=== PATIENT | male | born 1940 | race Caucasian/White ===

== ENCOUNTER 2018-09-25 17:50 | Emergency (ER) | payer MEDICARE ==
[2018-09-25] MEDS ORDERED: Sodium Chloride 0.9% 1000 ML 1,000 ML IV STA ×2 (18:37→21:05)
--- NOTE | 2018-09-25 18:45 | ERPHSYRPT ---
- History of Present Illness Source: patient Exam Limitations: intoxication Patient Subjective Stated Complaint: Flank pain Triage Nursing Assessment: Patient ambulated back to ED and transferred self to bed. Patient A+O X 3. Patient complains of suzi flank pain constant aching 5/10. Patient states the right flank pain is more intense. Patient also complains of lower abdominal pain. Patient states his urine is bloody and he is having trouble urinating. Patient states he passes a kidney stone prior to coming in. Abdomen soft and round with BS X 4. Timing/Duration: today Activites at Onset: other (urinating) Quality: burning, fullness, sharpness Onset Location: RLQ, right flank, left flank Pain Radiation: none Severity of Pain-Max: mild Severity of Pain-Current: mild Modifying Factors: Improves With: analgesics Associated Symptoms: abdominal pain, dysuria, other (hematuria) Prior abdominal problems: none Hx Influenza Vaccination/Date Given: Yes Hx Pneumococcal Vaccination/Date Given: Yes Immunizations Up to Date: Yes <BRANDON MCNAMARA - Last Filed: 09/25/18 18:39> <CHRIS GALAVIZ - Last Filed: 09/25/18 21:28> - History of Present Illness Physician History: Pt is a 78 y/o male that presented to the ER stating, he passed a kidney stone, and had hematuria. Pt states, he still has pain in b/l CVAs, more on R, and RLQ. Pt denies other complains, and has no F/C/S. No SOB or cough. No chest pain or palpitations. Pt looks intoxicated, and it is hard to get clear history from pt. (BRANDON MCNAMARA) Allergies/Adverse Reactions: No Known Drug Allergies Allergy (Unverified 09/25/18 18:22) - Past Medical History Pertinent Past Medical History: Yes Neurological History: No Pertinent History ENT History: No Pertinent History Cardiac History: Hypertension Respiratory History: No Pertinent History Endocrine Medical History: No Pertinent History Musculoskeletal History: No Pertinent History GI Medical History: No Pertinent History History: No Pertinent History Psycho-Social History: No Pertinent History Male Reproductive Disorders: No Pertinent History - Past Surgical History Past Surgical History: Yes Neuro Surgical History: No Pertinent History Cardiac: No Pertinent History Respiratory: No Pertinent History Gastrointestinal: No Pertinent History Genitourinary: No Pertinent History Musculoskeletal: Orthopedic Surgery Male Surgical History: No Pertinent History Other Surgical History: Right leg - Social History Smoking Status: Current every day smoker How long have you smoked: years Exposure to second hand smoke: Yes Drug Use: marijuana, methamphetamines Patient Lives Alone: No <BRANDON MCNAMARA - Last Filed: 09/25/18 18:39> - Review of Systems Constitutional: No Fever, No Chills Eyes: No Symptoms Ears, Nose, & Throat: No Symptoms Abdominal/Gastrointestinal: Abdominal Pain Genitourinary Symptoms: Dysuria, Hematuria, Flank Pain Musculoskeletal: No Back Pain, No Neck Pain Neurological: No Dizziness, No Focal Weakness, No Sensory Changes <BRANDON MCNAMARA - Last Filed: 09/25/18 18:39> - Physical Exam SpO2: 97 <BRANDON MCNAMARA - Last Filed: 09/25/18 18:39> - Physical Exam General Appearance: alert, other (well-developed white male alert, smacking lips frequent random movements suspicious for tardive dyskinesia) Eye Exam: PERRL/EOMI, other (fundi unremarkable) Ears, Nose, Throat Exam: pharynx normal, moist mucous membranes Neck Exam: normal inspection, supple Respiratory Exam: normal breath sounds, lungs clear Cardiovascular Exam: regular rate/rhythm, capillary refill <2 sec, No edema Gastrointestinal/Abdomen Exam: soft, normal bowel sounds, No tenderness Back Exam: normal inspection, No CVA tenderness Extremity Exam: normal inspection, normal range of motion, No pedal edema Neurologic Exam: alert, oriented x 3, tissue technician II-XII nml as tested, other (patient with frequent random movements, smacking his lips) Skin Exam: normal color, warm, dry, No rash SpO2 Interpretation: normal (97%) <CHRIS GALAVIZ - Last Filed: 09/25/18 21:28> - Nursing Vital Signs Nursing Vital Signs: Initial Vital Signs Temperature 98.7 F 09/25/18 18:24 Pulse Rate 82 09/25/18 18:24 Respiratory Rate 18 09/25/18 18:24 Blood Pressure 122/87 09/25/18 18:24 O2 Sat by Pulse Oximetry 97 09/25/18 18:24 Pain Scale Pain Intensity 6 - Course Nursing assessment & vital signs reviewed: Yes <BRANDON MCNAMARA - Last Filed: 09/25/18 18:39> - Course EKG Interpreted by Me: RATE (78 bpm), Sinus Rhythm, NORMAL AXIS, Other (EKG: Sinus rhythm, 70 beats per minute, Q waves in lead 3 and aVF, normal axis, no acute ST or T wave changes noted) - CT Exams Abdomen/Pelvis CT Interpretation: Discussed w/radiologist (CT abdomen and pelvis: No comparisons. Nonobstructing left renal punctate calculus. Distended urinary bladder with mild circumferential wall thickening. Rule out cystitis. Normal appendix. Multiple small gallstones. Moderate size hiatal hernia. Mild diffuse fecal stasis.) <CHRIS GALAVIZ - Last Filed: 09/25/18 21:28> Ordered Tests: Active Orders 24 hr Category Date Time Status EKG-ER Only STAT Care 09/25/18 19:50 Active IV Insertion STAT Care 09/25/18 18:37 Active ABDOMEN AND PELVIS W/0 CONTRAS [CT] Stat Exams 09/25/18 18:38 Taken Alcohol [ETHYL ALCOHOL] Stat Lab 09/25/18 18:50 Completed CBC W DIFF Stat Lab 09/25/18 18:50 Completed CMP Stat Lab 09/25/18 18:50 Completed Lactic Acid Stat Lab 09/25/18 18:37 Completed UA W/RFX UR CULTURE Stat Lab 09/25/18 20:34 Completed Urine Triage Profile Stat Lab 09/25/18 20:34 Completed Medication Summary Generic Name Dose Route Start Last Admin Trade Name Freq PRN Reason Stop Dose Admin Sodium Chloride 1,000 mls @ 999 mls/hr 09/25/18 21:05 09/25/18 21:07 Sodium Chloride 0.9% 1000 Ml IV 09/25/18 22:05 999 mls/hr .Q1H1M STA Administration Discontinued Medications Generic Name Dose Route Start Last Admin Trade Name Freq PRN Reason Stop Dose Admin Sodium Chloride 1,000 mls @ 999 mls/hr 09/25/18 18:37 09/25/18 19:54 Sodium Chloride 0.9% 1000 Ml IV 09/25/18 19:37 Infused .Q1H1M STA Infusion Sodium Chloride Confirm 09/25/18 18:51 Sodium Chloride 0.9% 1000 Ml Administered 09/25/18 18:52 Dose 1,000 mls @ ud .ROUTE .STK-MED ONE Sodium Chloride Confirm 09/25/18 21:06 Sodium Chloride 0.9% 1000 Ml Administered 09/25/18 21:07 Dose 1,000 mls @ ud .ROUTE .STK-MED ONE Lab/Rad Data: Laboratory Result Diagrams 09/25/18 18:50 09/25/18 18:50 Laboratory Results 09/25/18 09/25/18 09/25/18 Range/Units 20:34 20:34 18:50 WBC (4.0-10.5) K/mm3 RBC (4.1-5.6) M/mm3 Hgb (12.5-18.0) gm/dl Hct (42-50) % MCV (78-100) fl MCH (26-32) pg MCHC (32-36) g/dl RDW (11.5-14.0) % Plt Count (150-450) K/mm3 MPV (6-9.5) fl Gran % (36.0-66.0) % Eos # (Auto) (0-0.5) Absolute Lymphs (auto) (1.0-4.6) Absolute Monos (auto) (0.0-1.3) Lymphocytes % (24.0-44.0) % Monocytes % (0.0-12.0) % Eosinophils % (0.00-5.0) % Basophils % (0.0-0.4) % Absolute Granulocytes (1.4-6.9) Basophils # (0-0.4) Sodium (137-145) mmol/L Potassium (3.5-5.1) mmol/L Chloride (98-107) mmol/L Carbon Dioxide (22-30) mmol/L Anion Gap (5-15) MEQ/L BUN (9-20) mg/dL Creatinine (0.66-1.25) mg/dL Estimated GFR ML/MIN Glucose (74-106) mg/dL Lactic Acid (0.4-2.0) Calcium (8.4-10.2) mg/dL Total Bilirubin (0.2-1.3) mg/dL AST (17-59) U/L ALT (0-50) U/L Alkaline Phosphatase (38-126) U/L Serum Total Protein (6.3-8.2) g/dL Albumin (3.5-5.0) g/dL Urine Color YELLOW (YELLOW) Urine Appearance CLEAR (CLEAR) Urine pH 5.0 (5-6) Ur Specific Jackson 1.018 (1.005-1.025) Urine Protein NEGATIVE (Negative) Urine Ketones NEGATIVE (NEGATIVE) Urine Blood NEGATIVE (0-5) Jerry/ul Urine Nitrite NEGATIVE (NEGATIVE) Urine Bilirubin NEGATIVE (NEGATIVE) Urine Urobilinogen NEGATIVE (0-1) mg/dL Ur Leukocyte Esterase NEGATIVE (NEGATIVE) Urine WBC (Auto) 0-2 (0-5) /HPF Urine RBC (Auto) 0-2 (0-2) /HPF U Hyaline Cast (Auto) 0-2 (0-2) /LPF U Epithel Cells (Auto) NONE (FEW) /HPF Urine Bacteria (Auto) NONE (NEGATIVE) /HPF Urine Mucus (Auto) SLIGHT (NEGATIVE) /HPF Urine Culture Reflexed NO (NO) Urine Glucose NEGATIVE (NEGATIVE) mg/dL Urine Opiates Level NEGATIVE (NEGATIVE) Ur Methadone NEGATIVE (NEGATIVE) Urine Barbiturates NEGATIVE (NEGATIVE) Ur Phencyclidine (PCP) NEGATIVE (NEGATIVE) Urine Amphetamine POSITIVE (NEGATIVE) U Benzodiazepine Level NEGATIVE (NEGATIVE) Urine Cocaine NEGATIVE (NEGATIVE) Urine Marijuana (THC) NEGATIVE (NEGATIVE) Ethyl Alcohol < 10 (0-10) mg/dL 09/25/18 09/25/18 09/25/18 Range/Units 18:50 18:50 18:37 WBC 11.1 H (4.0-10.5) K/mm3 RBC 3.51 L (4.1-5.6) M/mm3 Hgb 12.5 (12.5-18.0) gm/dl Hct 36.9 L (42-50) % MCV 105.1 H (78-100) fl MCH 35.6 H (26-32) pg MCHC 33.9 (32-36) g/dl RDW 13.6 (11.5-14.0) % Plt Count 189 (150-450) K/mm3 MPV 9.1 (6-9.5) fl Gran % 67.2 H (36.0-66.0) % Eos # (Auto) 0.22 (0-0.5) Absolute Lymphs (auto) 2.17 (1.0-4.6) Absolute Monos (auto) 1.21 (0.0-1.3) Lymphocytes % 19.5 L (24.0-44.0) % Monocytes % 10.9 (0.0-12.0) % Eosinophils % 2.0 (0.00-5.0) % Basophils % 0.4 (0.0-0.4) % Absolute Granulocytes 7.49 H (1.4-6.9) Basophils # 0.05 (0-0.4) Sodium 139 (137-145) mmol/L Potassium 4.7 (3.5-5.1) mmol/L Chloride 106 (98-107) mmol/L Carbon Dioxide 26 (22-30) mmol/L Anion Gap 11.3 (5-15) MEQ/L BUN 30 H (9-20) mg/dL Creatinine 1.37 H (0.66-1.25) mg/dL Estimated GFR 53.4 ML/MIN Glucose 83 (74-106) mg/dL Lactic Acid 0.9 (0.4-2.0) Calcium 9.5 (8.4-10.2) mg/dL Total Bilirubin 1.10 (0.2-1.3) mg/dL AST 46 (17-59) U/L ALT 30 (0-50) U/L Alkaline Phosphatase 90 (38-126) U/L Serum Total Protein 7.2 (6.3-8.2) g/dL Albumin 4.0 (3.5-5.0) g/dL Urine Color (YELLOW) Urine Appearance (CLEAR) Urine pH (5-6) Ur Specific Jackson (1.005-1.025) Urine Protein (Negative) Urine Ketones (NEGATIVE) Urine Blood (0-5) Jerry/ul Urine Nitrite (NEGATIVE) Urine Bilirubin (NEGATIVE) Urine Urobilinogen (0-1) mg/dL Ur Leukocyte Esterase (NEGATIVE) Urine WBC (Auto) (0-5) /HPF Urine RBC (Auto) (0-2) /HPF U Hyaline Cast (Auto) (0-2) /LPF U Epithel Cells (Auto) (FEW) /HPF Urine Bacteria (Auto) (NEGATIVE) /HPF Urine Mucus (Auto) (NEGATIVE) /HPF Urine Culture Reflexed (NO) Urine Glucose (NEGATIVE) mg/dL Urine Opiates Level (NEGATIVE) Ur Methadone (NEGATIVE) Urine Barbiturates (NEGATIVE) Ur Phencyclidine (PCP) (NEGATIVE) Urine Amphetamine (NEGATIVE) U Benzodiazepine Level (NEGATIVE) Urine Cocaine (NEGATIVE) Urine Marijuana (THC) (NEGATIVE) Ethyl Alcohol (0-10) mg/dL <BRANDON MCNAMARA - Last Filed: 09/25/18 18:39> - Progress Progress: improved <CHRIS GALAVIZ - Last Filed: 09/25/18 21:28> - Progress Progress Note: 09/25/18 18:44 Pt was seen and examined. Labs were ordered, and CT of abdomen and pelvis with no contrast was ordered as well. At this point, I will not give any opioids to the PT as UDS, and ETOH level is pending. IVF were ordered. Pt was signed out to Dr Galaviz. (BRANDON MCNAMARA) 09/25/18 19:46 78-year-old white male initially seen by Dr. Mcnamara Patient with complaint of bilateral flank pain he states he had blood in his urine feels like he passed a stone today.\ On physical examination patient is alert he has smacking of his lips frequently random movements appears to have tardive dyskinesia. He denies any previous antipsychotic medication. Patient is cooperative. Past medical history includes high blood pressure. Past surgical history includes a right leg surgery Social history includes tobacco use . Physical examination vitals temperature 90.7 pulse 82 respiration 18 blood pressure 122/87 sats 97% General well-developed white male frequent smacking movements of his lips frequently moves from side to side. Head is atraumatic normocephalic. Eyes PERRLA EOMI fundi are remarkable. Ears TMs are intact bilaterally. Nose is clear. Throat is clear. Neck is supple. Lungs are clear. Heart regular rate rhythm without murmur. Abdomen mildly distended positive bowel sounds negative rebound no palpable tenderness. Extremities full range of motion pulses equal and symmetrical two over four. Neuro frequent smacking of his lips and random movements otherwise cranial nerves II through XII are intact DTRs symmetrical two over four [place] Coma Scale 15. Labs White blood cell 11.1 hemoglobin 12.5 hematocrit 36.9 platelets 189 chemistry sodium 139 potassium 4.7 chloride 106 bicarbonate 26 BUN 30 creatinine 1.37 glucose [address] abdomen and pelvis is pending. Blood alcohol less than 10. Patient has not provided urine for urinalysis or urine drug screen. Patient does appear to have a distended bladder on CT not official read. Will have nurse is obtain urine he does not provide one shortly will need to catheter the patient. Patient is receiving IV normal saline will obtain EKG. . . 09/25/18 21:25 Patient is improved after receiving IV normal saline. Patient's urine drug screen positive for amphetamines patient's urinalysis essentially normal patient's CT remarkable for non-obstructing left renal punctate calculus, distended urinary bladder with mild circumferential wall thickening. Rule out cystitis. There is normal appendix multiple gallstones moderate size hiatal hernia mild diffuse fecal stasis patient's lactate is normal at 0.9 patient's chemistry sodium 139 potassium 4.7 chloride 106 bicarbonate 26 BUN 30 creatinine 1.37 glucose 83 CBC white blood cell 11.1 hemoglobin 12.5 hematocrit 36.9 platelets 189 Blood alcohol less than 10. (CHRIS GALAVIZ) <BRANDON MCNAMARA - Last Filed: 09/25/18 18:39> - Departure Departure Disposition: Home Critical Care Time: No <CHRIS GALAVIZ - Last Filed: 09/25/18 21:28> - Departure Clinical Impression: Bilateral flank pain, Dehydration, Substance abuse Condition: Fair Referrals: DOCTOR,NO FAMILY [Primary Care Provider] - Instructions: Flank Pain Additional Instructions: Return home. Plenty of fluids. Tylenol every 4 hours as needed for pain. Followup with your family (list). Return for acute distress or for severe symptoms.
[2018-09-25] MEDS ORDERED: Sodium Chloride 0.9% 1000 ML 1,000 ML ONE ×2 (18:51→21:06)
[2018-09-25 18:56] LABS: BASOPHIL % 0.4 % (0.0-0.4); Basophil (Absolute #) 0.05 (0-0.4); Eosinophil (Absolute #) 0.22 (0-0.5); Granulocyte Absolute (ANC) 7.49 (1.4-6.9); Granulocytes % 67.2 % (36.0-66.0); Hematocrit 36.9 % (42-50); Hemoglobin 12.5 gm/dl (12.5-18.0); Lymphocyte (Absolute #) 2.17 (1.0-4.6); Lymphocytes % 19.5 % (24.0-44.0); Mean Cell Volume 105.1 fl (78-100); Mean Corpuscular Hemoglobin 35.6 pg (26-32); Mean Corpuscular Hgb Concent. 33.9 g/dl (32-36); Mean Platelet Volume 9.1 fl (6-9.5); Monocyte (Absolute #) 1.21 (0.0-1.3); Monocytes % 10.9 % (0.0-12.0); Platelet Count 189 K/mm3 (150-450); Red Blood Count 3.51 M/mm3 (4.1-5.6); Red Cell Distribution Width 13.6 % (11.5-14.0); White Blood Count 11.1 K/mm3 (4.0-10.5)
[2018-09-25 19:08] LABS: ANION GAP 11.3 MEQ/L (5-15); BILIRUBIN,TOTAL 1.1 mg/dL (0.2-1.3); Calcium 9.5 mg/dL (8.4-10.2); Creatinine 1 1.37 mg/dL (0.66-1.25); Potassium 4.7 mmol/L (3.5-5.1); Total Protein 7.2 g/dL (6.3-8.2)
[2018-09-25 20:49] LABS: Appearance CLEAR (CLEAR); Bilirubin NEGATIVE (NEGATIVE); Blood NEGATIVE Ery/ul (0-5); Glucose NEGATIVE (NEGATIVE); Hyaline Casts 0-2 /LPF (0-2); Ketones NEGATIVE (NEGATIVE); Leukocyte Esterase NEGATIVE (NEGATIVE); Mucus SLIGHT /HPF (NEGATIVE); Nitrite NEGATIVE (NEGATIVE); Protein,Urine Dip NEGATIVE (Negative); RBC 0-2 /HPF (0-2); Specific Gravity 1.018 (1.005-1.025); Urobilinogen NEGATIVE mg/dL (0-1); WBC 0-2 /HPF (0-5)
[2018-09-25 20:53] LABS: Barbiturate,Urine NEGATIVE (NEGATIVE); Benzodiazepine,Urine NEGATIVE (NEGATIVE); Cocaine,Urine NEGATIVE (NEGATIVE); Methadone,Urine NEGATIVE (NEGATIVE); Opiate,Urine NEGATIVE (NEGATIVE); PCP,Urine NEGATIVE (NEGATIVE); THC,Urine NEGATIVE (NEGATIVE)
[2018-09-25 21:20] LABS: Amphetamine,Urine POSITIVE (NEGATIVE)
[2018-09-25 22:25] VITALS: BP 128/63; PULSE 80; O2SAT 95
--- NOTE | 2018-09-26 08:40 | XRAY ---
Indication: Right lower quadrant pain. Possible stone. Multiple contiguous axial images obtained through the abdomen and pelvis without contrast using renal stone protocol. Comparison: None Lung bases demonstrates moderate bibasilar dependent atelectasis, lingula fibrosis/scarring, and lingula calcified granuloma. Heart is not enlarged. Moderate sized hiatal hernia with partial intrathoracic stomach. There are bilateral extrarenal pelvises. Left kidney demonstrates nonobstructing punctate calculus. No other renal calculus or evidence for obstructive uropathy. Urinary bladder is moderately distended with mild circumferential wall thickening, possible cystitis. Noncontrasted stomach and bowel loops appear nonobstructed. Normal air-filled appendix. Mild scattered colonic fecal debris throughout including rectum. No free fluid/air. Gallbladder demonstrates multiple tiny gallstones. Remaining liver, pancreas, spleen, adrenal glands, kidneys, ureters, and bladder appear unremarkable for noncontrast exam. Mild/moderate scattered vascular calcifications. No AAA. Osseous structures demonstrates mild/moderate multilevel degenerative spondylosis, greatest in the lumbar spine. Right hip demonstrates mild degenerative changes with old posterior acetabulum fracture with intact hardware. Impression: 1. Nonobstructing left renal micro-calculus. Distended urinary bladder with circumferential wall thickening, possible cystitis in the right clinical setting. 2. Multiple gallstones. Gallbladder sonogram may yield further information. 3. Mild fecal stasis without obstruction. Small hiatal hernia. CT DI 23.57
== END 2018-09-25 22:28 | disposition home or self-care (01) ==
LOC: ED 17:50
DX: R10.9 Unspecified abdominal pain (principal); E86.0 Dehydration; N20.0 Calculus of kidney; F15.10 Other stimulant abuse, uncomplicated; I10 Essential (primary) hypertension; R31.9 Hematuria, unspecified
CPT/HCPCS: 36000; 36415; 74176; 80053; 80307; 81001; 83605; 85025; 93005; 96360; 96361; 99284; G0480